=== PATIENT | male | born 1955 | race Caucasian/White ===

== ENCOUNTER 2017-10-18 14:54 | Inpatient (IN) | payer OTHER, MEDICARE ==
[~2017-10-18] VITALS: Ht 172.7 cm; Wt 103.8 kg
[~2017-10-18 14:54] MED LIST: 1-ME1LIQ PO; AMLO10 PO; CYMB60CA PO; DULO60 PO; IBUP800T23 PO; LISI2.5T55 PO; LISI5 PO; PERP4 PO; PERP4TAB8 PO; PERP8TAB7 PO; PRAV40 PO; PRIL40CA PO; PROT40TA PO; SIMV20 PO; TRAZ100T4 PO; TRAZ150T2 PO; ZOLP5TAB3 PO
[2017-10-18 14:56] VITALS: BP 183/91; PULSE 110; RESP 22; TEMP 97.6; O2SAT 96
[2017-10-18 15:51] LABS: BLOOD, URINE NEG (NEG); GLUCOSE,URINE NEG (NEG); KETONE, URINE NEG (NEG); MUCUS URINE FEW /lpf (OCC); NITRITE,URINE NEG (NEG); PH, URINE 5.5 (5.0-8.5); URINE COLOR LIGHT-YELLOW (YELLW/STRAW)
[2017-10-18 15:52] LABS: COMMENT (UR) CULT NOT INDICATED; CULTURE IF INDICATED CULT NOT INDICATED
[2017-10-18 16:00] LABS: BASOPHIL % 0.6 % (0.0-2.0); EOSINOPHIL # 0.1 TH/MM3 (0-0.4); EOSINOPHIL % 1.4 % (0.0-4.0); HEMATOCRIT 41.9 % (39.0-51.0); HEMO FLAGS DIFF FINAL; LYMPH % 30.6 % (9.0-44.0); LYMPHOCYTE # 2.5 TH/MM3 (1.0-4.8); MEAN CELL VOLUME 89.7 FL (80.0-100.0); MEAN CORPUSCULAR HEMOGLOBIN 30.2 PG (27.0-34.0); MEAN CORPUSCULAR HGB CONC 33.7 % (32.0-36.0); MONO % 6.3 % (0.0-8.0); NEUT % 61.1 % (16.0-70.0); PLATELET COUNT 265 TH/MM3 (150-450); RED BLOOD COUNT 4.67 MIL/MM3 (4.50-5.90); RED CELL DISTRIBUTION WIDTH 14.5 % (11.6-17.2); WHITE BLOOD COUNT 8.2 TH/MM3 (4.0-11.0)
[2017-10-18 16:12] VITALS: BP 144/70; PULSE 89; RESP 16; O2SAT 97
[2017-10-18 16:23] LABS: ALT (GPT) 28 U/L (12-78); ANION GAP 6 MEQ/L (5-15); AST (GOT) 28 U/L (15-37); BICARBONATE 29.2 MEQ/L (21.0-32.0); BLOOD UREA NITROGEN 13 MG/DL (7-18); CHLORIDE 99 MEQ/L (98-107); GLOMERULAR FILTRATION RATE 50 ML/MIN (>89); POTASSIUM 3.9 MEQ/L (3.5-5.1); SODIUM (NA) 134 MEQ/L (136-145)
[2017-10-18 16:26] LABS: ALKALINE PHOSPHATASE 80 U/L (45-117); TOTAL BILIRUBIN ADULT 0.5 MG/DL (0.2-1.0)
[2017-10-18 16:29] LABS: ALCOHOL LESS THAN 3 MG/DL (0-5)
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
[2017-10-18] MEDS ORDERED: OMEP20TA93 PO (19:12)
[2017-10-18] MEDS ORDERED: TRAZ100T10 PO (19:12)
[2017-10-18] MEDS ORDERED: AMLO5TAB2 PO (19:12)
[2017-10-18] MEDS ORDERED: HYDR50CA PO (19:12)
[2017-10-18] MEDS ORDERED: LAMO25CH CHEW (19:12)
[2017-10-18] MEDS ORDERED: FLUT50SP EACH NARE (19:12)
[2017-10-18] MEDS ORDERED: SPIRCAP INH (19:12)
[2017-10-18] MEDS ORDERED: VENTAER INH (19:12)
[2017-10-18] MEDS ORDERED: PERP2TAB18 PO (19:12)
[2017-10-18] MEDS ORDERED: FAMO20TA2 PO (19:12)
[2017-10-18] MEDS ORDERED: ATOR80TA45 PO (19:12)
[2017-10-18] MEDS ORDERED: DULO1CAP3 PO (19:12)
[2017-10-18] MEDS ORDERED: FURO20TA PO (19:12)
[2017-10-18] MEDS ORDERED: ZOLP10TA3 PO (19:12)
[2017-10-18] MEDS ORDERED: FINA5TAB2 PO (19:12)
[2017-10-18] MEDS ORDERED: CHIL5SOL PO (19:12)
[2017-10-18] MEDS ORDERED: LISI-515 PO (19:12)
[2017-10-18] MEDS ORDERED: FAMOTIDINE 20 MG TAB PO ONE (19:15)
[2017-10-18 21:00] VITALS: BP 144/68; PULSE 80; RESP 16; O2SAT 98
[2017-10-19] MEDS ORDERED: LORazepam 2 MG/ML VIAL - age > 65 yrs IM PRN (03:15)
[2017-10-19] MEDS ORDERED: ACETAMINOPHEN 325 MG TAB PO PRN (03:15)
[2017-10-19] MEDS ORDERED: MAGNESIUM HYDROXIDE SUSP 30 ML CUP PO PRN (03:15)
[2017-10-19] MEDS ORDERED: ALBUTEROL SULFATE 90 MCG/ACT HFA 8 GM INHALER INH PRN (03:30)
[2017-10-19] MEDS ORDERED: ALBUTEROL SULFATE 90 MCG/ACT HFA 18 GM INHALER INH PRN (03:30)
[2017-10-19 03:46] VITALS: BP 153/70; PULSE 84; RESP 18; TEMP 97.8; O2SAT 97
[2017-10-19] MEDS: LORazepam 0.5 MG TAB age > 65 yrs PO PRN (04:23)
[2017-10-19] MEDS: ALUMINUM/MAGNESIUM/SIMETH 30 ML CUP PO PRN ×3 (04:25→18:08)
[2017-10-19 06:17] VITALS: BP 160/73; PULSE 89; RESP 17; TEMP 97.3; O2SAT 98
[2017-10-19] MEDS: FAMOTIDINE 20 MG TAB PO SCH ×2 (08:26→20:59)
[2017-10-19] MEDS: LORATADINE 10 MG TAB PO SCH (08:26)
[2017-10-19] MEDS: lamoTRIgine 25 MG TAB PO SCH ×2 (08:26→21:00)
[2017-10-19] MEDS: amLODIPine BESYLATE 5 MG TAB PO SCH (08:26)
[2017-10-19] MEDS: DULoxetine HCl DR 60 MG CAP PO SCH (08:27)
[2017-10-19] MEDS: TIOTROPIUM BROMIDE 18 MCG INH INH SCH (08:48)
[2017-10-19] MEDS: FLUTICASONE PROPIONATE 50 MCG/ACT 16 GM NASAL SPRAY NASAL SCH (08:48)
[2017-10-19] MEDS: FINASTERIDE 5 MG TAB PO SCH (08:48)
[2017-10-19] MEDS: NICOTINE 21 MG/24 HR PATCH T-DERMAL SCH (08:49)
[2017-10-19] MEDS ORDERED: LISINOPRIL 20 MG TAB PO SCH (09:00)
[2017-10-19] MEDS ORDERED: FUROSEMIDE 20 MG TAB PO SCH (09:00)
--- NOTE | 2017-10-19 10:16 | PD.PN.STU ---
Subjective Remarks Patient is a 62 y/o male who presented voluntarily to ED with suicidal ideations. Medicine team consulted for medical clearance for psychiatric admission. He complains of heartburn and mild wheezing. Denies chest pain or SOB. Denies nausea, vomiting, constipation, or diarrhea. Last BM was last night. Reports good appetite. Past Medical History: hypertension, hyperlipidemia, COPD, GERD, bipolar disorder , anxiety, depression, schizoaffective disorder, insomnia Past Surgical History: prostate surgery, ankle surgery (2012) Family History: Type 2 diabetes (mother, father) Social History: Former smoker, 60-pack years, quit 30 years ago. Denies use of alcohol or illicit drugs. Allergies: levofloxacin, penicillin G Medications: Omeprazole (Omeprazole) 20 Mg Tab, 20 MG PO DAILY, #30 TAB 0 Refills 10/18/17 Hydroxyzine Pamoate (Hydroxyzine Pamoate) 50 Mg Cap, 50 MG PO QID Y for ANXIETY , CAP 0 Refills 10/18/17 Tiotropium Inh (Spiriva Handihaler) 18 Mcg Cap, 18 MCG INH DAILY for COPD, #30 CAP 0 Refills 1 capsule = 18 mcg 10/18/17 Fluticasone Nasal [place] (Fluticasone Nasal [place]) 50 Mcg/Act Naspr, 100 MCG EACH NARE DAILY for Allergy Management, #1 BOTTLE 0 Refills 50 mcg/spray 10/18/17 Albuterol 18 GM Inh (Ventolin Hfa 18 GM Inh) 90 Mcg/Act Aer, 2 PUFF INH Q4-6H Y for SHORTNESS OF BREATH, #1 INHALER 0 Refills 10/18/17 Furosemide (Furosemide) 20 Mg Tab, 20 MG PO DAILY, #30 TAB 0 Refills 10/18/17 Zolpidem (Zolpidem) 10 Mg Tab, 10 MG PO HS Y for INSOMNIA, TAB 0 Refills 10/18/17 Trazodone (Trazodone) 100 Mg Tablet, 100 MG PO HS for Control Depression, #30 TAB 0 Refills 10/18/17 Loratadine (Loratadine Allergy) 5 Mg/5 Ml Solution, 10 MG PO DAILY 10/18/17 Lisinopril (Lisinopril) 20 Mg Tab, 20 MG PO DAILY, #30 TAB 0 Refills 10/18/[address] (Duloxetine DR) 60 Mg Capdr, 60 MG PO DAILY, #30 CAP 0 Refills 10/18/17 Famotidine (Famotidine) 20 Mg Tab, 20 MG PO BID, #60 TAB 0 Refills 10/18/17 Lamotrigine (Lamotrigine) 25 Mg Chew, 25 MG CHEW BID for Control Seizures, #60 TAB 0 Refills 10/18/17 Perphenazine (Perphenazine) 2 Mg Tab, 2 MG PO HS, #30 TAB 0 Refills 10/18/17 Amlodipine (Amlodipine) 5 Mg Tab, 5 MG PO DAILY for Blood Pressure Management, # 30 TAB 0 Refills 10/18/17 Atorvastatin (Atorvastatin) 80 Mg Tab, 80 MG PO HS for Cholesterol Management, # 30 TAB 0 Refills 10/18/17 Finasteride (Finasteride) 5 Mg Tab, 5 MG PO DAILY for Manage Prostate Problems, #30 TAB 0 Refills Do not crush. 10/18/17S Objective Vitals Vital Signs Date Time Temp Pulse Resp B/P (MAP) Pulse Ox O2 Delivery O2 Flow Rate FiO2 10/19/17 06:17 97.3 89 17 160/73 (102) 98 10/19/17 03:46 97.8 84 18 153/70 (97) 97 10/19/17 01:59 10/18/17 21:00 80 16 144/68 (93) 98 Room Air 10/18/17 16:12 89 16 144/70 (94) 97 Room Air 10/18/17 14:56 97.6 110 22 183/91 (121) 96 Result Diagram: 10/18/17 1520 10/18/17 1520 Objective Remarks GENERAL: Well-developed, well-nourished, male. Appears stated age and gender. Found resting in bed comfortably, no acute distress. SKIN: Warm and dry. HEAD: Atraumatic. Normocephalic. NECK: Trachea midline. No JVD. CARDIOVASCULAR: Regular rate and rhythm. RESPIRATORY: No accessory muscle use. Clear to auscultation. Breath sounds equal bilaterally. GASTROINTESTINAL: Abdomen soft, non-tender, nondistended. Hepatic and splenic margins not palpable. MUSCULOSKELETAL: Extremities without clubbing, cyanosis, or edema. No obvious deformities. NEUROLOGICAL: Awake and alert. No obvious cranial nerve deficits. Motor grossly within normal limits. Five out of 5 muscle strength in the arms and legs. Normal speech. A/P Assessment and Plan 62 y/o male with history of hypertension, hyperlipidemia, COPD, and GERD who presented to ED with suicidal ideation. Hypertension -Uncontrolled, 160/73 -Resume home medications: amlodipine 5mg daily. Hold lisinopril 20mg daily, furosemide 20mg daily as patient with poss LATA. Add hydralazine PRN if SBP> 160 , add metoprolol 25 mg q8 hr if SBP> 160 and HR>65 -Will continue to monitor BP and will adjust hypertensive meds if BP stays elevated Hyperlipidemia -Resume home medication: atorvastatin 80mg daily -Lipid profile pending COPD -Well-controlled at this time -Resume home medications: albuterol 18gm inh daily, tiotropium 18mcg inh daily GERD -Resume home medications: omeprazole 20mg daily, famotidine 20mg BID Urinary retention -History of prostate issues -Resume finasteride 5mg daily - Do bladder scan as patient also with elevated Cr , will place barillas of residual volume > 200 cc. Poss LATA Cr of 1.4 on admission, however last Cr in [facility] is normal but was in 2013. Encourage PO hydration. Will monitor kidney function if no improvement will do Renal US, check UA and further work up, will hold ACEI/ARBS and diuretics Bipolar disorder, anxiety, depression, schizoaffective disorder, insomnia -Continued management by psychiatry team Seen and discussed at length with Gifty Allan MSIII agree with above. Gifty Allan M3 Oct 19, 2017 10:16 Cherie Cortez MD Oct 19, 2017 12:10
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
[2017-10-19] MEDS: PERPHENAZINE 4 MG TAB PO SCH ×2 (11:42→21:00)
--- NOTE | 2017-10-19 12:14 | PD.CONS ---
HPI Service [facility] Hospitalists Consult Requested By Dr Florentino Reason for Consult medical management Primary Care Physician [facility] Diagnoses: (1) HTN (hypertension) (2) HLD (hyperlipidemia) (3) Suicidal ideation History of Present Illness Patient is a 62 y/o male who presented voluntarily to ED with suicidal ideations. Medicine team consulted for medical clearance for psychiatric admission. He complains of heartburn and mild wheezing. Denies chest pain or SOB. Denies nausea, vomiting, constipation, or diarrhea. Last BM was last night. Reports good appetite. Review of Systems Except as stated in HPI: all other systems reviewed are Neg Past Family Social History Allergies: Coded Allergies: levofloxacin (Unverified Allergy, Mild, 10/18/17) penicillin G (Unverified Allergy, Mild, 10/18/17) Past Medical History Hypertension, hyperlipidemia, COPD, GERD, bipolar disorder, anxiety, depression , schizoaffective disorder, insomnia Past Surgical History Prostate surgery, ankle surgery (2012) Reported Medications Reported Meds & Active Scripts Active Reported Omeprazole 20 Mg Tab 20 Mg PO DAILY Hydroxyzine Pamoate 50 Mg Cap 50 Mg PO QID PRN Spiriva Handihaler (Tiotropium Inh) 18 Mcg Cap 18 Mcg INH DAILY 1 capsule = 18 mcg Fluticasone Nasal [place] 50 Mcg/Act Naspr 100 Mcg EACH NARE DAILY 50 mcg/spray Ventolin Hfa 18 GM Inh (Albuterol Sulfate) 90 Mcg/Act Aer 2 Puff INH Q4-6H PRN Furosemide 20 Mg Tab 20 Mg PO DAILY Zolpidem (Zolpidem Tartrate) 10 Mg Tab 10 Mg PO HS PRN Trazodone (Trazodone HCl) 100 Mg Tablet 100 Mg PO HS Loratadine Allergy (Loratadine) 5 Mg/5 Ml Solution 10 Mg PO DAILY Lisinopril 20 Mg Tab 20 Mg PO DAILY Duloxetine DR (Duloxetine HCl) 60 Mg Capdr 60 Mg PO DAILY Famotidine 20 Mg Tab 20 Mg PO BID Lamotrigine 25 Mg Chew 25 Mg CHEW BID Perphenazine 2 Mg Tab 2 Mg PO HS Amlodipine (Amlodipine Besylate) 5 Mg Tab 5 Mg PO DAILY Atorvastatin (Atorvastatin Calcium) 80 Mg Tab 80 Mg PO HS Finasteride 5 Mg Tab 5 Mg PO DAILY Do not crush. Family History Type 2 diabetes (mother, father) Social History Former smoker, 60-pack years, quit 30 years ago. Denies use of alcohol or illicit drugs. Physical Exam Vital Signs Vital Signs Date Time Temp Pulse Resp B/P (MAP) Pulse Ox O2 Delivery O2 Flow Rate FiO2 10/19/17 06:17 97.3 89 17 160/73 (102) 98 10/19/17 03:46 97.8 84 18 153/70 (97) 97 10/19/17 01:59 10/18/17 21:00 80 16 144/68 (93) 98 Room Air 10/18/17 16:12 89 16 144/70 (94) 97 Room Air 10/18/17 14:56 97.6 110 22 183/91 (121) 96 Physical Exam GENERAL: This is a well-nourished, well-developed patient, in no apparent distress. SKIN: No rashes, ecchymoses or lesions. Cool and dry. HEAD: Atraumatic. Normocephalic. No temporal or scalp tenderness. EYES: Pupils equal round and reactive. Extraocular motions intact. No scleral icterus. No injection or drainage. ENT: Nose without bleeding, purulent drainage or septal hematoma. Throat without erythema, tonsillar hypertrophy or exudate. Uvula midline. Airway patent. NECK: Trachea midline. No JVD or lymphadenopathy. Supple, nontender, no meningeal signs. CARDIOVASCULAR: Regular rate and rhythm without murmurs, gallops, or rubs. RESPIRATORY: Clear to auscultation. Breath sounds equal bilaterally. No wheezes , rales, or rhonchi. GASTROINTESTINAL: Abdomen soft, non-tender, nondistended. No hepato-splenomegaly , or palpable masses. No guarding. MUSCULOSKELETAL: Extremities without clubbing, cyanosis, or edema. No joint tenderness, effusion, or edema noted. No calf tenderness. Negative Homans sign bilaterally. NEUROLOGICAL: Awake and alert. Cranial nerves II through XII intact. Motor and sensory grossly within normal limits. Five out of 5 muscle strength in all muscle groups. Normal speech. Laboratory Laboratory Tests Test 10/18/17 15:20 White Blood Count 8.2 Red Blood Count 4.67 Hemoglobin 14.1 Hematocrit 41.9 Mean Corpuscular Volume 89.7 Mean Corpuscular Hemoglobin 30.2 Mean Corpuscular Hemoglobin Concent 33.7 Red Cell Distribution Width 14.5 Platelet Count 265 Mean Platelet Volume 8.7 Neutrophils (%) (Auto) 61.1 Lymphocytes (%) (Auto) 30.6 Monocytes (%) (Auto) 6.3 Eosinophils (%) (Auto) 1.4 Basophils (%) (Auto) 0.6 Neutrophils # (Auto) 5.0 Lymphocytes # (Auto) 2.5 Monocytes # (Auto) 0.5 Eosinophils # (Auto) 0.1 Basophils # (Auto) 0.0 CBC Comment DIFF FINAL Differential Comment Urine Color LIGHT-YELLOW Urine Turbidity CLEAR Urine pH 5.5 Urine Specific [place] 1.006 Urine Protein NEG Urine Glucose (UA) NEG Urine Ketones NEG Urine Occult Blood NEG Urine Nitrite NEG Urine Bilirubin NEG Urine Urobilinogen LESS THAN 2.0 Urine Leukocyte Esterase NEG Urine WBC LESS THAN 1 Urine Mucus FEW Microscopic Urinalysis Comment CULT NOT INDICATED Blood Urea Nitrogen 13 Creatinine 1.43 Random Glucose 118 Total Protein 8.4 Albumin 4.2 Calcium Level 9.2 Alkaline Phosphatase 80 Aspartate Amino Transf (AST/SGOT) 28 Alanine Aminotransferase (ALT/SGPT) 28 Total Bilirubin 0.5 Sodium Level 134 Potassium Level 3.9 Chloride Level 99 Carbon Dioxide Level 29.2 Anion Gap 6 Estimat Glomerular Filtration Rate 50 Urine Opiates Screen NEG Urine Barbiturates Screen NEG Urine Amphetamines Screen NEG Urine Benzodiazepines Screen NEG Urine Cocaine Screen NEG Urine Cannabinoids Screen NEG Ethyl Alcohol Level LESS THAN 3 Result Diagram: 10/18/17 1520 10/18/17 1520 Assessment and Plan Assessment and Plan 62 y/o male with history of hypertension, hyperlipidemia, COPD, and GERD who presented to ED with suicidal ideation. Hypertension -Uncontrolled, 160/73 -Resume home medications: amlodipine 5mg daily. Hold lisinopril 20mg daily, furosemide 20mg daily as patient with poss LATA. Add hydralazine PRN if SBP> 160 , add metoprolol 25 mg q8 hr if SBP> 160 and HR>65 -Will continue to monitor BP and will adjust hypertensive meds if BP stays elevated Hyperlipidemia -Resume home medication: atorvastatin 80mg daily -Lipid profile pending COPD -Well-controlled at this time -Resume home medications: albuterol 18gm inh daily, tiotropium 18mcg inh daily - Reports h/o lung mass or nodule by CXR and says he did not have repeat CXR as indicated. Will do CXR for evaluation GERD -Resume home medications: omeprazole 20mg daily, famotidine 20mg BID Urinary retention -History of prostate issues -Resume finasteride 5mg daily - Do bladder scan as patient also with elevated Cr , will place barillas of residual volume > 200 cc. Poss LATA Cr of 1.4 on admission, however last Cr in [facility] is normal but was in 2013. Encourage PO hydration. Will monitor kidney function if no improvement will do Renal US, check UA and further work up, will hold ACEI/ARBS and diuretics Bipolar disorder, anxiety, depression, schizoaffective disorder, insomnia -Continued management by psychiatry team Thank you for this consultation will follow along. Discussed Condition With patient, nurse Cherie Cortez MD Oct 19, 2017 12:14
[2017-10-19] MEDS ORDERED: hydrALAZINE HCL 10 MG TAB PO PRN (12:15)
[2017-10-19] MEDS ORDERED: METOPROLOL TARTRATE 25 MG TAB PO PRN (12:15)
--- NOTE | 2017-10-19 12:29 | PD.TTN ---
Patient Problems 1. Discharge planning 2. Medication compliance 3. Knowledge deficit 4. Lack of coping skills Progress Toward Goals Provider Present: Dr. Linda Florentino Provider Input: Dr. Florentino's treatment team met to discuss patient's treatment plan, discharge, and medication. Patient is new. Nurse(s) Input: Patient's nurse Alisia stated patient is pleasant, cooperative, medication compliant. Patient still feels like wanting to harm himself due to multiple life stressor. Patient is still hearing voices that tell him to harmself Psychiatric Counselors Present: Gifty Ta [facility] Psych Therapist Input: Patient is new. Patient will be assessed for goals and treament plans. Group Spec/RT/OT/TRAN Present: MARC Rebolledo Group Spec/RT/OT/TRAN Input: Patient is new. Gifty Ta [facility] Oct 19, 2017 12:29
[2017-10-19] MEDS: hydrOXYzine HCL 50 MG TAB PO PRN (14:25)
--- NOTE | 2017-10-19 15:21 | RADRPT ---
EXAM DATE/TIME: 10/19/2017 14:13 [facility] COMPARISON: No previous studies available for comparison. INDICATIONS : Increased BUN/creatinine. MEDICAL HISTORY : Emphysema. Arthritis. Leaky heart valve. COPD. GERD. Bladder retention. Degenerative disc disease. Hallucinations. Bipolar disorder. Depression. Anxiety. SURGICAL HISTORY : Prostate surgery. ENCOUNTER: Initial ACUITY: 1 day PAIN SCORE: 8/10 LOCATION: Bilateral flank MEASUREMENTS: RIGHT KIDNEY: 10.3 x 4.6 x 4.8 cm LEFT KIDNEY: 11.0 x 4.9 x 5.4 cm FINDINGS: RIGHT KIDNEY: Renal cortex is normal in thickness and echotexture. No hydronephrosis, stone, or mass. LEFT KIDNEY: Renal cortex is normal in thickness and echotexture. No hydronephrosis, stone, or mass. BLADDER: Within normal limits given the degree of distension. CONCLUSION: 1. Unremarkable ultrasound examination of the kidneys. Samy Simon MD on October 19, 2017 at 15:15 Board Certified Radiologist. This report was verified electronically.
--- NOTE | 2017-10-19 15:43 | RADRPT ---
EXAM DATE/TIME: 10/19/2017 15:09 [facility] COMPARISON: No previous studies available for comparison. INDICATIONS : Short of breath. MEDICAL HISTORY : Emphysema. SURGICAL HISTORY : None. ENCOUNTER: Initial ACUITY: 1 day PAIN SCORE: 0/10 LOCATION: Bilateral chest FINDINGS: Mild airspace disease in the left lower lung zone with associated volume loss. Right lung is clear. C ardiomediastinal contours are within normal limits. Bony thorax is intact. CONCLUSION: 1. Mild left lower lobe airspace disease and associated volume loss. Stephan Menard MD on October 19, 2017 at 15:40 Board Certified Radiologist. This report was verified electronically.
[2017-10-19 18:00] VITALS: BP 109/64; PULSE 80; RESP 18; TEMP 98; O2SAT 98
--- NOTE | 2017-10-19 18:42 | EKG ---
Date Performed: 10/18/2017 Time Performed: 16:16:01 PTAGE: 62 years EKG: Sinus rhythm MARKED LEFT AXIS DEVIATION PATTERN CONSISTENT WITH PULMONARY DISEASE ABNORMAL ECG NO PREVIOUS TRACING DOCTOR: Faby Stubbs Interpretating Date/Time 10/19/2017 18:40:14
[2017-10-19] MEDS: ATORVASTATIN 80 MG TAB PO SCH (20:59)
[2017-10-19] MEDS ORDERED: REMOVE OLD NICOTINE PATCH T-DERMAL SCH (21:00)
[2017-10-19] MEDS ORDERED: PERPHENAZINE 4 MG TAB PO SCH (21:00)
[2017-10-19] MEDS ORDERED: traZODone HCL 100 MG TAB PO SCH (21:00)
[2017-10-19] MEDS: traZODone HCL 50 MG TAB PO SCH (21:00)
--- NOTE | 2017-10-19 22:38 | HHI.PR ---
Subjective Remarks NOT SEEN Objective Vitals Vital Signs Date Time Temp Pulse Resp B/P (MAP) Pulse Ox O2 Delivery O2 Flow Rate FiO2 10/19/17 18:00 98.0 80 18 109/64 (79) 98 10/19/17 06:17 97.3 89 17 160/73 (102) 98 10/19/17 03:46 97.8 84 18 153/70 (97) 97 10/19/17 01:59 Result Diagram: 10/18/17 1520 10/18/17 1520 Imaging Last Impressions Renal Ultrasound 10/19/17 0000 Signed Impressions: Service Date/Time: Thursday, October 19, 2017 14:13 - CONCLUSION: 1. Unremarkable ultrasound examination of the kidneys. Samy Simon MD Chest X-Ray 10/19/17 0000 Signed Impressions: Service Date/Time: Thursday, October 19, 2017 15:09 - CONCLUSION: 1. Mild left lower lobe airspace disease and associated volume loss. Stephan Menard MD Objective Remarks GENERAL: This is a well-nourished, well-developed patient, in no apparent distress. SKIN: No rashes, ecchymoses or lesions. Cool and dry. HEAD: Atraumatic. Normocephalic. No temporal or scalp tenderness. EYES: Pupils equal round and reactive. Extraocular motions intact. No scleral icterus. No injection or drainage. ENT: Nose without bleeding, purulent drainage or septal hematoma. Throat without erythema, tonsillar hypertrophy or exudate. Uvula midline. Airway patent. NECK: Trachea midline. No JVD or lymphadenopathy. Supple, nontender, no meningeal signs. CARDIOVASCULAR: Regular rate and rhythm without murmurs, gallops, or rubs. RESPIRATORY: Clear to auscultation. Breath sounds equal bilaterally. No wheezes , rales, or rhonchi. GASTROINTESTINAL: Abdomen soft, non-tender, nondistended. No guarding. MUSCULOSKELETAL: Extremities without clubbing, cyanosis, or edema. No joint tenderness, effusion, or edema noted. No calf tenderness. Negative Homans sign bilaterally. NEUROLOGICAL: Awake and alert. Cranial nerves II through XII intact. Motor and sensory grossly within normal limits. Five out of 5 muscle strength in all muscle groups. Normal speech. A/P Problem List: (1) HTN (hypertension) ICD Code: I10 - Essential (primary) hypertension (2) HLD (hyperlipidemia) ICD Code: E78.5 - Hyperlipidemia, unspecified (3) Suicidal ideation ICD Code: R45.851 - Suicidal ideations Status: Acute Assessment and Plan 62 y/o male with history of hypertension, hyperlipidemia, COPD, and GERD who presented to ED with suicidal ideation. Hypertension -Uncontrolled, 160/73 -Resume home medications: amlodipine 5mg daily. Hold lisinopril 20mg daily, furosemide 20mg daily as patient with poss LATA. Add hydralazine PRN if SBP> 160 , add metoprolol 25 mg q8 hr if SBP> 160 and HR>65 -Will continue to monitor BP and will adjust hypertensive meds if BP stays elevated Hyperlipidemia -Resume home medication: atorvastatin 80mg daily -Lipid profile pending COPD -Well-controlled at this time -Resume home medications: albuterol 18gm inh daily, tiotropium 18mcg inh daily - Reports h/o lung mass or nodule by CXR and says he did not have repeat CXR as indicated. Will do CXR for evaluation GERD -Resume home medications: omeprazole 20mg daily, famotidine 20mg BID Urinary retention -History of prostate issues -Resume finasteride 5mg daily - Do bladder scan as patient also with elevated Cr , will place barillas of residual volume > 200 cc. Poss LATA Cr of 1.4 on admission, however last Cr in [facility] is normal but was in 2013. Encourage PO hydration. Will monitor kidney function if no improvement will do Renal US, check UA and further work up, will hold ACEI/ARBS and diuretics Bipolar disorder, anxiety, depression, schizoaffective disorder, insomnia -Continued management by psychiatry team Samy Landis MD Oct 19, 2017 22:38
[2017-10-20 05:50] VITALS: BP 132/65; PULSE 82; RESP 18; TEMP 97.7; O2SAT 93
[2017-10-20] MEDS: DULoxetine HCl DR 60 MG CAP PO SCH (09:00)
[2017-10-20] MEDS: lamoTRIgine 25 MG TAB PO SCH ×2 (09:00→20:18)
[2017-10-20] MEDS: NICOTINE 21 MG/24 HR PATCH T-DERMAL SCH (09:00)
[2017-10-20] MEDS: FLUTICASONE PROPIONATE 50 MCG/ACT 16 GM NASAL SPRAY NASAL SCH (09:00)
[2017-10-20] MEDS: LORATADINE 10 MG TAB PO SCH (09:00)
[2017-10-20] MEDS: amLODIPine BESYLATE 5 MG TAB PO SCH (09:00)
[2017-10-20] MEDS: FAMOTIDINE 20 MG TAB PO SCH ×2 (09:00→20:18)
[2017-10-20] MEDS: PERPHENAZINE 4 MG TAB PO SCH ×2 (09:00→20:20)
[2017-10-20] MEDS: TIOTROPIUM BROMIDE 18 MCG INH INH SCH (09:00)
[2017-10-20] MEDS: FINASTERIDE 5 MG TAB PO SCH (09:00)
[2017-10-20 09:08] LABS: BICARBONATE 26.8 MEQ/L (21.0-32.0); BLOOD UREA NITROGEN 14 MG/DL (7-18); GLOMERULAR FILTRATION RATE 67 ML/MIN (>89)
[2017-10-20 09:13] LABS: HDL CHOLESTEROL 58.8 MG/DL (40.0-60.0); LDL CHOLESTEROL 63 MG/DL (0-99)
[2017-10-20 09:31] LABS: ANION GAP 7 MEQ/L (5-15); CHLORIDE 103 MEQ/L (98-107); POTASSIUM 4.1 MEQ/L (3.5-5.1); SODIUM (NA) 137 MEQ/L (136-145)
[2017-10-20] MEDS: LORazepam 0.5 MG TAB age > 65 yrs PO PRN (10:18)
--- NOTE | 2017-10-20 11:42 | HHI.PYPN ---
Subjective Chief Complaint: depression with increased psychosis and suicidality Remarks Patient seen in his room with nurse Rebekah, chart reviewed, patient continues depressed with suicidal ideation intent and plan. He states he would take the suicide pill if offered. He does have some insight into the increased difficulty with him giving appropriate care to his . He states they have explored senior citizens facilities that would accommodate both of them. But that may be some insurability related to this. While there were counselor work with him. Event at the present time patient continues significantly suicidal. We'll continue treatment at this time Review of Systems Except as stated in HPI: all other systems reviewed are Neg Mental Status Examination Appearance: Appropriate Consciousness: Alert Orientation: x4 Motor Activity: Normal gait Speech: Unremarkable Language: Adequate Fund of Knowledge: Adequate Attention and Concentration: Adequate Memory: Unremarkable Mood: Sad (with suicidal intent and willingness to take the suicide pill) Affect: Other (decreased range and intensity) Thought Process & Associations: Intact Thought Content: Appropriate, Hallucinations Hallucination Type: Auditory (command telling him to harm himself) Delusion Type: None Suicidal Ideation: Yes Suicidal Plan: Yes (would take the suicide pill if offered) Suicidal Intention: Yes Homicidal Ideation: No Homicidal Plan: No Homicidal Intention: No Insight: Poor Judgment: Poor Results Labs Test 10/19/17 15:20 10/20/17 07:13 Total Creatine Kinase 184 U/L Blood Urea Nitrogen 14 MG/DL Creatinine 1.11 MG/DL Random Glucose 118 MG/DL Calcium Level 9.0 MG/DL Sodium Level 137 MEQ/L Potassium Level 4.1 MEQ/L Chloride Level 103 MEQ/L Carbon Dioxide Level 26.8 MEQ/L Anion Gap 7 MEQ/L Estimat Glomerular Filtration Rate 67 ML/MIN Triglycerides Level 142 MG/DL Cholesterol Level 150 MG/DL LDL Cholesterol 63 MG/DL HDL Cholesterol 58.8 MG/DL Cholesterol/HDL Ratio 2.55 RATIO Vitals/IOs Vital Signs Date Time Temp Pulse Resp B/P (MAP) Pulse Ox O2 Delivery O2 Flow Rate FiO2 10/20/17 05:50 97.7 82 18 132/65 (87) 93 10/18/17 21:00 Room Air Assessment & Plan Problem List: (1) Schizoaffective disorder, depressive type ICD Codes: F25.1 - Schizoaffective disorder, depressive type Assessment & Plan Estimated LOS: days patient continues depressed and suicidal with intent and plan. He would take the suicide pill Justification for Cont. Inpt. At this time patient will decompensate place to the lower level of care Discharge Planning Alternative placements may be return home with his versus placement in the senior citizens type development medication give a both he and his Request HC Surrog/Guard Advoc?: No Jose Martin Florentino MD Oct 20, 2017 11:42
[2017-10-20 14:18] LABS: HEMOGLOBIN A1b 1.6 %; HEMOGLOBIN Ao 86.1 %; HEMOGLOBIN LA1C 2.1 %; HEMOGLOBIN P3 3.5 %
[2017-10-20] MEDS: ALUMINUM/MAGNESIUM/SIMETH 30 ML CUP PO PRN (18:09)
[2017-10-20 18:32] VITALS: BP 133/64; PULSE 80; RESP 18; TEMP 97.4; O2SAT 98
[2017-10-20] MEDS: ATORVASTATIN 80 MG TAB PO SCH (20:19)
[2017-10-20] MEDS: traZODone HCL 50 MG TAB PO SCH (20:19)
[2017-10-20] MEDS: hydrOXYzine HCL 50 MG TAB PO PRN (20:55)
[2017-10-21 05:30] VITALS: BP 110/59; PULSE 83; RESP 17; TEMP 98.1; O2SAT 93
[2017-10-21] MEDS: LORATADINE 10 MG TAB PO SCH (09:00)
[2017-10-21] MEDS: lamoTRIgine 25 MG TAB PO SCH ×2 (09:00→20:53)
[2017-10-21] MEDS: TIOTROPIUM BROMIDE 18 MCG INH INH SCH (09:00)
[2017-10-21] MEDS: FLUTICASONE PROPIONATE 50 MCG/ACT 16 GM NASAL SPRAY NASAL SCH (09:00)
[2017-10-21] MEDS: DULoxetine HCl DR 60 MG CAP PO SCH (09:00)
[2017-10-21] MEDS: FINASTERIDE 5 MG TAB PO SCH (09:00)
[2017-10-21] MEDS: PERPHENAZINE 4 MG TAB PO SCH ×2 (09:00→20:54)
[2017-10-21] MEDS: amLODIPine BESYLATE 5 MG TAB PO SCH (09:00)
[2017-10-21] MEDS: FAMOTIDINE 20 MG TAB PO SCH (09:00)
[2017-10-21] MEDS: hydrOXYzine HCL 50 MG TAB PO PRN (13:16)
--- NOTE | 2017-10-21 13:38 | HHI.PYPN ---
Subjective Chief Complaint: depression with increased psychosis and suicidality Remarks Patient seen in his room with counselor Gifty, chart review, patient compliant medication. Patient showing some improvement in his affect and his mood, still concerned about his ability to care for his independently. We discussed with counselor is financial issues. He does have a apartment to return to with his . Though finances wish to be difficult due to a purchase [employer] that he cannot afford he is somewhat vague about suicidality homicidality voices or visions at the present time Review of Systems Except as stated in HPI: all other systems reviewed are Neg Mental Status Examination Appearance: Appropriate Consciousness: Alert Orientation: x4 Motor Activity: Normal gait Speech: Unremarkable Language: Adequate Fund of Knowledge: Adequate Attention and Concentration: Adequate Memory: Unremarkable Mood: Sad (with suicidal intent and willingness to take the suicide pill) Affect: Other (decreased range and intensity) Thought Process & Associations: Intact Thought Content: Appropriate, Hallucinations Hallucination Type: Auditory (command telling him to harm himself) Delusion Type: None Suicidal Ideation: Yes Suicidal Plan: Yes (would take the suicide pill if offered) Suicidal Intention: Yes Homicidal Ideation: No Homicidal Plan: No Homicidal Intention: No Insight: Poor Judgment: Poor Results Vitals/IOs Vital Signs Date Time Temp Pulse Resp B/P (MAP) Pulse Ox O2 Delivery O2 Flow Rate FiO2 10/21/17 05:30 98.1 83 17 110/59 (76) 93 10/18/17 21:00 Room Air Assessment & Plan Problem List: (1) Schizoaffective disorder, depressive type ICD Codes: F25.1 - Schizoaffective disorder, depressive type Assessment & Plan Estimated LOS: days patient somewhat calmer today with sore arrange depressed. Psychotic features are resolving. Placement issues appear to be becoming somewhat problematic due to financial issues and his ability to assist his Justification for Cont. Inpt. This time patient will decompensate placed in a lower level of care Discharge Planning For now continue treatment will attempt to meet with patient's family to discuss discharge plans and placement issues Request HC Surrog/Guard Advoc?: No Jose Martin Florentino MD Oct 21, 2017 13:38
--- NOTE | 2017-10-21 18:14 | HHI.PR ---
Subjective Remarks Follow up for HTN, GERD. Patient is currently doing well. Denies any CP, SOB. He does complain of persistent GERD. He is currently on Famotidine. Objective Vitals Vital Signs Date Time Temp Pulse Resp B/P (MAP) Pulse Ox O2 Delivery O2 Flow Rate FiO2 10/21/17 05:30 98.1 83 17 110/59 (76) 93 10/20/17 18:32 97.4 80 18 133/64 (87) 98 Result Diagram: 10/18/17 1520 10/20/17 0713 Imaging Last Impressions Renal Ultrasound 10/19/17 0000 Signed Impressions: Service Date/Time: Thursday, October 19, 2017 14:13 - CONCLUSION: 1. Unremarkable ultrasound examination of the kidneys. Samy Simon MD Chest X-Ray 10/19/17 0000 Signed Impressions: Service Date/Time: Thursday, October 19, 2017 15:09 - CONCLUSION: 1. Mild left lower lobe airspace disease and associated volume loss. Stephan Menard MD Objective Remarks GENERAL: Alert, NAD. SKIN: Warm and dry. HEAD: Normocephalic. EYES: No scleral icterus. No injection or drainage. NECK: Supple, trachea midline. No JVD or lymphadenopathy. CARDIOVASCULAR: Regular rate and rhythm without murmurs, gallops, or rubs. RESPIRATORY: Breath sounds equal bilaterally. No accessory muscle use. GASTROINTESTINAL: Abdomen soft, non-tender, nondistended. MUSCULOSKELETAL: No cyanosis, or edema. BACK: Nontender without obvious deformity. No CVA tenderness. Procedures None. A/P Problem List: (1) HTN (hypertension) ICD Code: I10 - Essential (primary) hypertension (2) HLD (hyperlipidemia) ICD Code: E78.5 - Hyperlipidemia, unspecified (3) Suicidal ideation ICD Code: R45.851 - Suicidal ideations Status: Acute Assessment and Plan 62 y/o male with history of hypertension, hyperlipidemia, COPD, and GERD who presented to ED with suicidal ideation. Hypertension - Patient was started on Amlodipine 5mg Qday. BP has been in the low 100s systolic. - Will cut down dosage to 2.5mg Qday. Hyperlipidemia - Continue atorvastatin 80mg daily COPD - Well-controlled at this time - Continue albuterol 18gm inh daily, tiotropium 18mcg inh daily - Reports h/o lung mass or nodule by CXR and says he did not have repeat CXR as indicated. - Repeat CXR does not show any mass or nodule. - If he has not undergone any CT chest study recently within last 12 months, we will consider a CT chest. GERD - Patient has a history of hiatal hernia. Will d/c Famotidine and start Protonix 40mg Qday. LATA - Creatinine improved from 1.43 to 1.11. Avoid nephrotoxins. Renal US unremarkable. Bipolar disorder, anxiety, depression, schizoaffective disorder, insomnia - Continued management by psychiatry team Full code. Ambulation. Kelsey Nath DO Oct 21, 2017 18:14
[2017-10-21] MEDS ORDERED: PILL SPLITTER OTHER PRN (18:15)
[2017-10-21] MEDS: PANTOPRAZOLE SOD 40 MG DELAYED RELEASE TAB PO SCH (18:15)
[2017-10-21 18:21] VITALS: BP 156/76; PULSE 96; RESP 18; TEMP 97.2; O2SAT 97
[2017-10-21] MEDS: ATORVASTATIN 80 MG TAB PO SCH (20:53)
[2017-10-21] MEDS: traZODone HCL 50 MG TAB PO SCH (20:53)
[2017-10-21] MEDS ORDERED: FAMOTIDINE 20 MG TAB PO SCH (21:00)
[2017-10-22 06:27] VITALS: BP 139/63; PULSE 68; RESP 17; TEMP 97.2; O2SAT 95
[2017-10-22] MEDS ORDERED: amLODIPine BESYLATE 5 MG TAB PO SCH (09:00)
[2017-10-22] MEDS: FINASTERIDE 5 MG TAB PO SCH (10:09)
[2017-10-22] MEDS: DULoxetine HCl DR 60 MG CAP PO SCH (10:10)
[2017-10-22] MEDS: LORATADINE 10 MG TAB PO SCH (10:10)
[2017-10-22] MEDS: PANTOPRAZOLE SOD 40 MG DELAYED RELEASE TAB PO SCH (10:10)
[2017-10-22] MEDS: PERPHENAZINE 4 MG TAB PO SCH (10:10)
[2017-10-22] MEDS: lamoTRIgine 25 MG TAB PO SCH (10:11)
[2017-10-22] MEDS: TIOTROPIUM BROMIDE 18 MCG INH INH SCH (10:13)
[2017-10-22] MEDS: FLUTICASONE PROPIONATE 50 MCG/ACT 16 GM NASAL SPRAY NASAL SCH (10:15)
[2017-10-22] MEDS ORDERED: FLUT50SP NASAL (13:55)
[2017-10-22] MEDS ORDERED: TRAZ1TAB14 PO (13:55)
[2017-10-22] MEDS ORDERED: SPIRCAP INH (13:55)
[2017-10-22] MEDS ORDERED: PERP4TAB24 PO (13:55)
[2017-10-22] MEDS ORDERED: LAMO25 PO (13:55)
[2017-10-22] MEDS ORDERED: ATOR80TA45 PO (13:55)
[2017-10-22] MEDS ORDERED: PANT40TA3 PO (13:55)
[2017-10-22] MEDS ORDERED: NORV2.5T PO (13:55)
[2017-10-22] MEDS ORDERED: DULO1CAP3 PO (13:55)
[2017-10-22] MEDS ORDERED: FINA5TAB2 PO (13:55)
[2017-10-22] MEDS ORDERED: CLAR10TA7 PO (13:55)
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
== END 2017-10-22 15:40 | disposition home or self-care (01) | DRG 885 ==
LOC: NEPE 14:54 → NEDA 10-19 01:29 → H260 10-19 02:15
PROVIDERS: ADMIT Psychiatry & Neurology Psychiatry; ATTEND Psychiatry & Neurology Psychiatry
DX: F25.1 Schizoaffective disorder, depressive type (principal); N17.9 Acute kidney failure, unspecified; R45.851 Suicidal ideations; I10 Essential (primary) hypertension; E78.5 Hyperlipidemia, unspecified; K21.9 Gastro-esophageal reflux disease without esophagitis; J44.9 Chronic obstructive pulmonary disease, unspecified; G47.00 Insomnia, unspecified; K44.9 Diaphragmatic hernia without obstruction or gangrene; F41.9 Anxiety disorder, unspecified; Z87.891 Personal history of nicotine dependence; Z83.3 Family history of diabetes mellitus; R33.9 Retention of urine, unspecified; Z91.410 Personal history of adult physical and sexual abuse; Z91.5 Personal history of self-harm
CPT/HCPCS: 71010; 76775; 80048; 80053; 80061; 80307; 81001; 82550; 83036; 85025; 93005; Q0175